=== PATIENT | male | born 1960 | race Caucasian/White ===

== ENCOUNTER 2021-09-09 09:03 | Day surgery (SDC) | payer BC ==
[~2021-09-09] VITALS: Ht 167.6 cm; Wt 79.8 kg
[2021-09-09] MEDS ORDERED: ASPIRIN 81M81 MG/TA2 PO (09:49)
[2021-09-09] MEDS ORDERED: NORVASC 5MG5 MG/TAB PO (09:49)
[2021-09-09] MEDS ORDERED: ZYLOPRIM 100MG100 MG PO (09:49)
[2021-09-09] MEDS ORDERED: LIPITOR 40MG TA40 MG PO (09:50)
[2021-09-09] MEDS ORDERED: FISH OIL1000 MG PO (09:50)
[2021-09-09] MEDS ORDERED: HCTZ 25MG TAB25 MG PO (09:50)
[2021-09-09] MEDS ORDERED: ZESTRIL40 MG PO (09:51)
[2021-09-09] MEDS ORDERED: MULTI VITAMINS1 TAB PO (09:51)
[2021-09-09 10:04] VITALS: BP 138/86; PULSE 94; TEMP 98.6
[2021-09-09 11:10] VITALS: BP 110/73; PULSE 87; TEMP 97.7
--- NOTE | 2021-09-09 11:10 | NUR ---
The patient arrived back to [facility] from the endoscopy suite at this time. The patient appears alert and oriented and ambulated from the cart to the recliner in his room with the stand by assistance of one nurse and appeared to tolerate the activity well. Post procedure vital signs were started at this time. The patient agrees to try some orange juice. The patient's sister was brought back to be at his bedside. Call light is within reach. Fresh warm blanket provided. Denies any further needs.
[2021-09-09 11:25] VITALS: BP 112/71; PULSE 80
--- NOTE | 2021-09-09 11:25 | NUR ---
The patient has spoke with Dr. Reich regarding the findings of the procedure. The patient appears to be tolerating the juice well. Sister remains at his bedside.
[2021-09-09 11:40] VITALS: BP 110/70; PULSE 77
--- NOTE | 2021-09-09 11:40 | NUR ---
Discharge instructions were reviewed with the patient and his sister at this time. They both verbalized understanding and have no questions for the nurse at this time. The patient's IV to his right wrist was removed and a pressure dressing was applied to the site. The nurse instructed the patient to get dressed while his sister pulls the car up to the patient entrance.
--- NOTE | 2021-09-09 11:45 | NUR ---
The patient was escorted out via wheelchair to a private vehicle by SOURAV Kohler. The patient's belongings and discharge paperwork were sent with him. The patient's sister is present to drive him home.
== END 2021-09-09 11:45 | disposition home or self-care (01) ==
LOC: SDCO 09:03
DX: Z12.11 Encounter for screening for malignant neoplasm of colon (principal); K64.0 First degree hemorrhoids
CPT/HCPCS: J2704; J7030

== ENCOUNTER 2023-11-13 14:38 | Emergency (ER) | payer BC ==
[~2023-11-13] VITALS: Ht 165.1 cm; Wt 81.8 kg
[~2023-11-13 14:38] MED LIST: ASPIRIN 81M81 MG/TA2 PO; FISH OIL1000 MG PO; HCTZ 25MG TAB25 MG PO; LIPITOR 40MG TA40 MG PO; MULTI VITAMINS1 TAB PO; NORVASC 5MG5 MG/TAB PO; ZESTRIL40 MG PO; ZYLOPRIM 100MG100 MG PO
[2023-11-13 14:49] VITALS: TEMP 98.8
[2023-11-13] MEDS ORDERED: Morphine 10 MG/ML VIAL IM ONE (17:45)
[2023-11-13] MEDS ORDERED: fentaNYL 50 MCG/ML 2 ML VIAL IV ONE (19:00)
[2023-11-13] MEDS ORDERED: ROXICODONE 55 MG/TAB PO (20:24)
[2023-11-13] MEDS ORDERED: FLEXERIL 1010 MG/TAB PO (20:24)
[2023-11-13] MEDS ORDERED: Home oxyCODONE/Acetaminophen 5/325 MG #4 TAB/PACK PO ONE (20:30)
[2023-11-13] MEDS ORDERED: Home Cyclobenzaprine 10 MG #2 TABS/PACK PO ONE (20:30)
[2023-11-13 20:45] VITALS: BP 113/55; PULSE 89
[2023-11-14] MEDS ORDERED: PREDNISONE20 MG PO (14:24)
== END 2023-11-13 20:45 | disposition home or self-care (01) ==
LOC: COL.ER 14:38
DX: M54.41 Lumbago with sciatica, right side (principal)
CPT/HCPCS: J2270; J2360; J3010; J3360

== ENCOUNTER 2023-11-14 12:52 | Emergency (ER) | payer BC ==
[~2023-11-14] VITALS: Ht 165.1 cm; Wt 81.8 kg
[~2023-11-14 12:52] MED LIST changes: +FLEXERIL 1010 MG/TAB PO; +ROXICODONE 55 MG/TAB PO
[2023-11-14 13:05] VITALS: BP 145/78; TEMP 98.8
[2023-11-14] MEDS ORDERED: PREDNISONE20 MG PO (14:24)
[2023-11-14] MEDS ORDERED: Ketorolac 60 MG/2 ML VIAL IM ONE (14:30)
[2023-11-14] MEDS ORDERED: dexAMETHasone 10 MG/ML VIAL IM ONE (14:30)
[2023-11-14 14:41] VITALS: PULSE 103
== END 2023-11-14 14:41 | disposition home or self-care (01) ==
LOC: COL.ER 12:52
DX: M54.16 Radiculopathy, lumbar region (principal)
CPT/HCPCS: J1100; J1885